=== PATIENT | female | born 1960 | race Caucasian/White ===

== ENCOUNTER → 2016-12-28 | Day surgery (SDC) | payer OTHER ==
[~2016-12-28] VITALS: Ht 157.5 cm; Wt 86.4 kg
[2016-12-28 08:54] LABS: HCT 37.4 % (37.0-47.0); MCH 30.8 pg (25.0-31.0); MCHC 34.8 g/dL (32.0-36.0); MCV 88.6 fL (78.0-100.0); MPV 9.3 fL (6.0-9.5); RBC 4.22 M/uL (4.20-5.40); RDW 13.3 % (11.5-14.0); WBC 8.6 K/uL (4.0-10.5)
[2016-12-28 09:24] LABS: ALBUMIN 4.6 g/dL (3.5-5.0); BILIRUBIN - TOTAL 0.6 mg/dL (0.1-1.0); CREATININE 0.7 mg/dL (0.5-1.0); GLOBULIN (CALCULATION) 3.4 g/dL (2.2-4.2); POTASSIUM 4.2 mmol/L (3.5-5.1)
== END | disposition home or self-care (01) ==
LOC: FAS 09:15
PROVIDERS: Surgery
DX: K62.1 Rectal polyp (principal); K58.9 Irritable bowel syndrome, unspecified; K21.9 Gastro-esophageal reflux disease without esophagitis; I10 Essential (primary) hypertension; E78.00 Pure hypercholesterolemia, unspecified; F41.9 Anxiety disorder, unspecified; F32.9 Major depressive disorder, single episode, unspecified; Z82.61 Family history of arthritis; Z80.3 Family history of malignant neoplasm of breast; Z82.3 Family history of stroke; Z82.62 Family history of osteoporosis; Z81.1 Family history of alcohol abuse and dependence; Z80.0 Family history of malignant neoplasm of digestive organs; Z83.6 Family history of other diseases of the respiratory system; Z79.899 Other long term (current) drug therapy; Z98.890 Other specified postprocedural states
CPT/HCPCS: 36415; 80053; J2704